=== PATIENT | female | born 1950 | race Caucasian/White ===

== ENCOUNTER 2017-01-30 23:17 | Emergency (ER) | payer OTHER ==
[~2017-01-30] VITALS: Ht 162.6 cm; Wt 62.6 kg
--- NOTE | ~2017-01-30 | EKG ---
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
--- NOTE | ~2017-01-30 | EKG ---
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 : 1950 Requested By: Nakul Regan Order Number: [id number] MD: Ehsan Troy Measurements Intervals [place] Rate: 85 P: 26 WI: 110 QRS: 54 QRSD: 101 T: 22 QT: 362 QTc: 431 Interpretive Statements Sinus rhythm Borderline short [place] interval No previous ECG available for comparison Electronically Signed On 01-31-2017 9:38:15 CDT by Ehsan Troy [email or web address] <ELECTRONICALLY SIGNED> By: Ehsan Troy MD, [facility] 01/31/17 0938 0139 0139 Ehsan Troy MD, FACC /EPI
[2017-01-30] MEDS ORDERED: AMITRIPTYLINE H25 M2 PO (23:40)
[2017-01-30] MEDS ORDERED: ATORVASTATIN CA40 MG PO (23:40)
[2017-01-30] MEDS ORDERED: ASPIR 8181 MG PO (23:40)
[2017-01-30] MEDS ORDERED: LIPITOR40 MG PO (23:40)
[2017-01-30 23:41] LABS: ABSOLUTE NEUTROPHILS 4.9 thou/uL (1.4-8.2); BASOPHILS 0.9 % (0.0-2.0); EOSINOPHILS 3.9 % (0.0-3.0); HEMATOCRIT 33.7 % (37.0-47.0); HEMOGLOBIN 11.5 gm/dL (12.0-15.0); MCH 33.1 pg (26.0-34.0); MCHC 34.1 g/dL (28.0-37.0); MONOCYTES 10.2 % (1.0-8.0); RBC 3.47 mil/uL (4.20-5.00); RDW 12.9 % (10.5-14.5); WBC 9.2 thou/uL (4.0-11.0)
[2017-01-30] MEDS ORDERED: CALCIUM 500+D1 EAC2 PO (23:41)
[2017-01-30] MEDS ORDERED: PLAVIX 75 MG TA75 M1 PO (23:41)
[2017-01-30] MEDS ORDERED: CO Q-10100 MG PO (23:42)
[2017-01-30] MEDS ORDERED: OMEGA 3 1,0001 EACH PO (23:43)
[2017-01-30] MEDS ORDERED: GABAPENTIN 100100 MG PO (23:43)
[2017-01-30] MEDS ORDERED: HYDROCODONE-AP1 EAC6 PO (23:44)
[2017-01-30] MEDS ORDERED: CENTRUM SILVER1 EAC4 PO (23:44)
[2017-01-30] MEDS ORDERED: NITROGLYCERIN0.4 MG SUBLING (23:44)
[2017-01-30] MEDS ORDERED: ALTACE10 MG PO (23:44)
[2017-01-30 23:46] LABS: POC CA IONIZED 3.7 mg/dL (4.5-5.3); POC CREATININE 0.9 mg/dL (0.6-1.3); POC HEMOGLOBIN 11.6 g/dL (12.0-15.0); POC POTASSIUM 6.6 mmol/L (3.5-5.1)
[2017-01-30 23:49] LABS: MANUAL DIFF NO
[2017-01-31 00:23] LABS: ANION GAP 10 mmol/L (7-16); CALCIUM 8.6 mg/dL (8.5-10.1); CHLORIDE 104 mmol/L (98-107); CO2 26 mmol/L (21-32); GLUCOSE 143 mg/dL (74-106); NT-PRO BRAIN NAT PEPTIDE 439 pg/mL (<300); POTASSIUM 3.9 mmol/L (3.5-5.1); SODIUM 140 mmol/L (136-145); TROPONIN-I < 0.04 ng/mL (<0.04-0.07)
[2017-01-31 00:38] LABS: BUN 20 mg/dL (7-18)
[2017-01-31 00:48] LABS: LARGE PLATELETS OCCASIONAL; PLATELET COUNT 205 thou/uL (150-400)
[2017-01-31 02:00] VITALS: BP 103/63
[2017-01-31 02:04] LABS: INR 1.1; PROTIME 10.9 Seconds (9.3-11.4)
== END 2017-01-31 02:13 | disposition short-term general hospital (02) ==
LOC: ER 23:17
PROVIDERS: Emergency Medicine
DX: I48.0 Paroxysmal atrial fibrillation (principal); Z87.891 Personal history of nicotine dependence